=== PATIENT | male | born 1970 | race Caucasian/White ===

== ENCOUNTER 2018-03-07 06:02 | Day surgery (SDC) | payer OTHER | END 2018-03-07 09:50 | disposition home or self-care (01) | LOC: AMB-ENDOS 06:02 | DX: C20 Malignant neoplasm of rectum (principal); D64.89 Other specified anemias; R11.2 Nausea with vomiting, unspecified; K29.70 Gastritis, unspecified, without bleeding; E86.0 Dehydration; R00.1 Bradycardia, unspecified; N17.8 Other acute kidney failure; K56.699 Other intestinal obstruction unspecified as to partial versus complete obstruction ==

== ENCOUNTER 2019-06-05 06:10 | Day surgery (SDC) | payer OTHER | END 2019-06-05 12:00 | disposition home or self-care (01) | LOC: AMB-ENDOS 06:10 | DX: C20 Malignant neoplasm of rectum (principal) ==